=== PATIENT | male | born 1995 | race Caucasian/White ===

== ENCOUNTER 2020-12-19 11:25 | Emergency (ER) | payer MEDICAID ==
[~2020-12-19] VITALS: Ht 172.7 cm; Wt 78.0 kg
[2020-12-19] MEDS ORDERED: IBUPROFEN 800MG TABLET PO ONE (13:00)
[2020-12-19 14:30] VITALS: BP 129/65
[2020-12-19] MEDS ORDERED: P20 MT (14:50)
[2020-12-19] MEDS ORDERED: IBUP-2030 MT (14:50)
== END 2020-12-19 15:16 | disposition home or self-care (01) ==
LOC: ER 12:21
DX: R50.9 Fever, unspecified (principal); Z20.822 Contact with and (suspected) exposure to COVID-19
CPT/HCPCS: 71045; 87070; 87430; 99284; C9803; U0003; U0005

== ENCOUNTER 2021-07-03 10:16 | Emergency (ER) | payer SELFPAY ==
[~2021-07-03] VITALS: Ht 170.2 cm; Wt 73.0 kg
[2021-07-03 10:16] VITALS: BP 131/77
[~2021-07-03 10:16] MED LIST: IBUP-2030 MT; P20 MT
[2021-07-03] MEDS ORDERED: PREDNISONE 20MG TABLET PO ONE (10:45)
[2021-07-03] MEDS ORDERED: DIPHENHYDRAMINE 25MG CAPSULE PO ONE (10:45)
[2021-07-03] MEDS ORDERED: P20 MT (11:32)
[2021-07-03] MEDS ORDERED: DIPH25CA83 MT (11:32)
== END 2021-07-03 13:54 | disposition home or self-care (01) ==
LOC: ER 10:16
DX: R22.0 Localized swelling, mass and lump, head (principal); T36.8X5A Adverse effect of other systemic antibiotics, initial encounter; Y92.018 Other place in single-family (private) house as the place of occurrence of the external cause
CPT/HCPCS: 99283; J7512; Q0163

== ENCOUNTER 2023-11-21 17:05 | Emergency (ER) | payer OTHER ==
[~2023-11-21] VITALS: Ht 162.6 cm; Wt 81.6 kg
[~2023-11-21 17:05] MED LIST changes: +DIPH25CA83 MT
[2023-11-21 17:21] VITALS: O2SAT 97
[2023-11-21] MEDS: LIDOCAINE HCL/PF 1% 10 MG/ML 5ML VIAL INFIL ONE (18:30)
[2023-11-21] MEDS: TETANUS, DIPHTHERIA, PERTUSSIS VAC/PF 0.5ML (>10YR OLD) IM ONE (19:20)
[2023-11-21 20:53] VITALS: BP 142/98; PULSE 69; RESP 20; TEMP 98
== END 2023-11-21 20:56 | disposition home or self-care (01) ==
LOC: ER 17:05
DX: L60.0 Ingrowing nail (principal); M79.675 Pain in left toe(s); Z79.899 Other long term (current) drug therapy; Z88.1 Allergy status to other antibiotic agents
CPT/HCPCS: 99284; 11730; J3490

== ENCOUNTER 2024-01-29 11:56 | Emergency (ER) | payer OTHER ==
[~2024-01-29] VITALS: Ht 165.1 cm; Wt 80.0 kg
[2024-01-29 12:02] VITALS: O2SAT 100
[2024-01-29] MEDS ORDERED: IBUP-2029 MT (13:17)
[2024-01-29] MEDS: IBUPROFEN 600MG TABLET PO ONE (13:25)
[2024-01-29 13:47] VITALS: BP 109/57; PULSE 75; RESP 17; TEMP 36.66960; O2SAT 98
== END 2024-01-29 13:58 | disposition home or self-care (01) ==
LOC: ER 11:56
DX: S80.01XA Contusion of right knee, initial encounter (principal); Z88.1 Allergy status to other antibiotic agents; W18.30XA Fall on same level, unspecified, initial encounter; Y93.66 Activity, soccer; Y92.89 Other specified places as the place of occurrence of the external cause; Y99.8 Other external cause status
CPT/HCPCS: 73562; 99283; Z7610